=== PATIENT | female | born 1990 ===

== ENCOUNTER 2023-11-29 09:10 | Inpatient (IN) | payer OTHER ==
[~2023-11-29] VITALS: Ht 167.6 cm; Wt 108.9 kg
[2023-11-29] MEDS ORDERED: ACETAMINOPHEN 500 MG TAB PO ONE (10:15)
[2023-11-29] MEDS ORDERED: NIFEdipine 10 MG CAP PO ONE (10:15)
[2023-11-29] MEDS ORDERED: hydrOXYzine 25 MG TAB or CAP PO ONE (10:15)
[2023-11-29] MEDS ORDERED: LIDOCAINE 2%HCL (LOCAL ANESTH.) INJ 20ML MDV IJ PRN (10:30)
[2023-11-29] MEDS ORDERED: BUTORPHANOL TARTRATE 2 MG/1 ML VIAL IV PRN ×2 (10:30)
[2023-11-29 12:20] LABS: Albumin 3.6 g/dL (3.2-4.8); Alkaline Phosphatase 119 U/L (46-116); Anion Gap 8 (5-15); Aspartate Aminotransferase 17 U/L (13-40); Bilirubin, Total 0.7 mg/dL (0.2-1.0); Calcium 8.4 mg/dL (8.5-10.1); Carbon Dioxide 20 mmol/L (20-30); Chloride 109 mmol/L (98-107); Glucose 75 mg/dL (74-106); Sodium 137 mmol/L (136-145); Total Protein 6.6 g/dL (5.7-8.2)
[2023-11-29 12:21] LABS: Basophils # (auto) 0 10 ^3/uL (0-0.2); Basophils % (auto) 0.1 % (0.0-2.0); Eosinophils # (auto) 0 10 ^3/uL (0-0.8); Monocytes # (auto) 0.5 10 ^3/uL (0-1.3); Nucleated Red Blood Cells % 0.1 %
[2023-11-29 12:24] LABS: Amphetamine Screen, Urine Neg (NEGATIVE); Barbiturate Scree,Urine Neg (NEGATIVE); Benzodiazephine Screen, Urine Neg (NEGATIVE); Cannabinoid Screen, Urine Neg (NEGATIVE); Cocaine Screen, Urine Neg (NEGATIVE); Opiate Scree,Urine Neg (NEGATIVE); Phencyclidine Screen, Urine Neg (NEGATIVE)
[2023-11-29 12:27] LABS: Eosinophils % (auto) 0.2 % (0.0-7.0); Hematocrit 29.3 % (36.0-46.0); Hemoglobin 9.4 g/dL (12.2-16.2); Lymphocytes # (auto) 1.4 10 ^3/uL (0.4-5.4); Mean Corpuscular Hemoglobin 26.9 pg (28.0-32.0); Monocytes % (auto) 5.4 % (0.0-12.0); Neutrophils # (auto) 8.1 10 ^3/uL (1.6-8.6); Neutrophils % (auto) 80.3 % (37.0-80.0); Red Blood Cells 3.49 10^6/uL (4.0-5.20); Red Cell Distribution Width 17.8 % (11.8-14.3); White Blood Cell 10.1 10^3/uL (4.4-10.8)
[2023-11-29 12:30] LABS: Urine Bacteria FEW /hpf (None Seen); Urine Blood Negative /uL (Negative); Urine Clarity Clear (Clear); Urine Color Light-Yellow (Yellow); Urine Protein, UAD Negative (Negative); Urine Specific Gravity 1.006 (1.001-1.035); Urine Urobilinogen Normal (Negative); Urine WBC <1 /hpf (0 - 5); Urine pH 6.5 (5.0-9.0)
[2023-11-29 12:36] LABS: Alanine Aminotransferase < 9 U/L (7-40); BUN/Creatinine Ratio 9.4 (10.0-20.0); Blood Urea Nitrogen < 5 mg/dL (9-23)
[2023-11-29] MEDS ORDERED: miSOPROStol 100 mcg TAB SL PRN (12:45)
[2023-11-29] MEDS ORDERED: CARBOPROST TROMETHAMINE 250 MCG/1ML VIAL IM PRN (12:45)
[2023-11-29] MEDS ORDERED: miSOPROStol 100 mcg TAB PR PRN (12:45)
[2023-11-29 12:59] LABS: INR 0.94 (0.9-1.15); Partial Thromboplastin Time 24.5 SEC (24.5-34.5); Prothrombin Time 9.9 sec (9.3-11.8)
[2023-11-29] MEDS ORDERED: ePHEDrine SULFATE 50 MG/ML AMP IV ONE (14:15)
[2023-11-29] MEDS: LACTATED RINGER'S 1,000 ML IV ONE (14:15)
[2023-11-29] MEDS: LACTATED RINGER'S 1,000 ML IV SCH (14:29)
[2023-11-29] MEDS: PENICILLIN G POT 5MIL/D5 50ML 50 ML IV ONE (14:29)
[2023-11-29] MEDS: PHISODERM TOP SOLN 240ML BTL TOP PRN (14:30)
[2023-11-29] MEDS: DERMOPLAST 60ML BOTTLE TOP PRN (14:30)
[2023-11-29] MEDS: WITCH HAZEL-GLYCERIN PAD TOP PRN (14:30)
[2023-11-29] MEDS: ROPIVACAINE HCL 200 ML ONE (15:00)
[2023-11-29 16:37] LABS: Creatinine, Urine 31.51 mg/dL (30.0-125.0); Urine Protein/Creatinine Ratio 0.51
[2023-11-29] MEDS: ONDANSETRON HCL 4 MG/2 ML VIAL IV ONE (16:56)
[2023-11-29] MEDS: PENICILLIN G POTASSIUM 2,500,000 UNITS in D5W 5% 50 ML IV SCH (18:21)
[2023-11-29] MEDS ORDERED: TERBUTALINE SULFATE 1 MG/ML 1ML VIAL SC ONE (19:15)
[2023-11-29] MEDS: LACT. RINGERS/OXYTOCIN 20UNITS 1,000 ML IV SCH (19:17)
[2023-11-29] MEDS: CARBOPROST TROMETHAMINE 250 MCG/1ML VIAL IM ONE (20:46)
[2023-11-29] MEDS: DIPHENOXYLATE W/ATROPINE 2.5 MG TAB ONE (20:47)
[2023-11-29] MEDS: LACT. RINGERS/OXYTOCIN 20UNITS 500 ML IV ONE ×2 (20:51→21:51)
[2023-11-29] MEDS: METHYLERGONOVINE MALEATE 0.2 MG/ML AMP IM PRN (20:51)
[2023-11-29] MEDS: TRANEXAMIC ACID 1,000 MG in SODIUM CHL 0.9% 100 ML IV ONE (20:52)
[2023-11-29] MEDS ORDERED: DIPHENOXYLATE W/ATROPINE 2.5 MG TAB PO SCH (22:00)
[2023-11-29] MEDS ORDERED: TRANEXAMIC ACID 1,000 mg/10ml INJ VIAL IV ONE (22:25)
[2023-11-29] MEDS ORDERED: ONDANSETRON HCL 4 MG/2 ML VIAL IV PRN (22:45)
[2023-11-29 23:02] VITALS: BP 136/71; PULSE 83; RESP 16; TEMP 98.4; O2SAT 99
[2023-11-30 03:00] VITALS: BP 122/69; PULSE 83; RESP 16; TEMP 97.7; O2SAT 97
[2023-11-30 05:59] LABS: Basophils # (auto) 0 10 ^3/uL (0-0.2); Basophils % (auto) 0.2 % (0.0-2.0); Eosinophils # (auto) 0 10 ^3/uL (0-0.8); Eosinophils % (auto) 0.1 % (0.0-7.0); Hematocrit 26.8 % (36.0-46.0); Hemoglobin 8.4 g/dL (12.2-16.2); Lymphocytes # (auto) 1.9 10 ^3/uL (0.4-5.4); Mean Corpuscular Hemoglobin 26.6 pg (28.0-32.0); Mean Corpuscular Hgb Conc. 31.5 g/dL (32.0-36.0); Mean Corpuscular Volume 84.4 fL (80.0-100.0); Red Blood Cells 3.17 10^6/uL (4.0-5.20)
[2023-11-30 06:02] LABS: Lymphocytes % (auto) 16.5 % (10.0-50.0); Monocytes % (auto) 8.2 % (0.0-12.0); Neutrophils # (auto) 8.7 10 ^3/uL (1.6-8.6); Nucleated Red Blood Cells % 0.2 %; Red Cell Distribution Width 17.8 % (11.8-14.3); White Blood Cell 11.7 10^3/uL (4.4-10.8)
[2023-11-30 07:06] LABS: RPR Non Reactive (Non Reactive)
[2023-11-30 07:15] VITALS: BP 115/57; PULSE 74; RESP 16; TEMP 98.3; O2SAT 95
[2023-11-30] MEDS: IBUPROFEN 600 MG TAB PO PRN (07:18)
[2023-11-30 08:06] LABS: Rubella Antibodies, IgG 1.22 index (Immune >0.99)
[2023-11-30 10:45] VITALS: BP 117/58; PULSE 75; RESP 15; TEMP 98.1; O2SAT 100
[2023-11-30] MEDS: ACETAMINOPHEN 325 MG TAB PO PRN (11:34)
[2023-11-30 15:00] VITALS: BP 121/64; PULSE 85; RESP 14; TEMP 97.8; O2SAT 97
[2023-11-30 19:00] VITALS: BP 115/68; PULSE 86; RESP 18; TEMP 98.4; O2SAT 99
[2023-11-30] MEDS ORDERED: PREN-96 PO (19:55)
[2023-11-30] MEDS ORDERED: DOCU-265 PO (19:55)
[2023-11-30] MEDS ORDERED: IBU600T PO (19:55)
[2023-11-30] MEDS ORDERED: FER325T PO (19:55)
[2023-11-30] MEDS: TETANUS-DIPTH-ACEL PERTUSSIS 0.5ML SYR Tdap IM ONE (20:07)
[2023-11-30] MEDS ORDERED: DOCUSATE SOD 100 MG CAP PO SCH (22:00)
[2023-11-30 22:38] VITALS: BP 115/68; PULSE 88; RESP 16; TEMP 98.6; O2SAT 100
[2023-12-01 18:06] LABS: Treponema pallidum Ab (FTA-Ab) Non Reactive (Non Reactive)
== END 2023-11-30 22:38 | disposition home or self-care (01) | DRG 807 ==
LOC: LDRP 09:10 → OBSVTOIN 10:16
PROVIDERS: ADMIT Obstetrics & Gynecology; ATTEND Obstetrics & Gynecology
PROC: 10E0XZZ Delivery of Products of Conception, External Approach (ICD-10-PCS; principal; 2023-11-29)
PROC: 10907ZC Drainage of Amniotic Fluid, Therapeutic from Products of Conception, Via Natural or Artificial Opening (ICD-10-PCS; 2023-11-29)
PROC: 3E0R3BZ Introduction of Anesthetic Agent into Spinal Canal, Percutaneous Approach (ICD-10-PCS; 2023-11-29)
PROC: 00HU33Z Insertion of Infusion Device into Spinal Canal, Percutaneous Approach (ICD-10-PCS; 2023-11-29)
DX: O99.02 Anemia complicating childbirth (principal); Z37.0 Single live birth; Z3A.39 39 weeks gestation of pregnancy; O71.82 Other specified trauma to perineum and vulva; D50.9 Iron deficiency anemia, unspecified
CPT/HCPCS: 36415; 59025; 59409; 62282; 76805; 80053; 80307; 81001; 81002; 82570; 84156; 84550; 85025; 85610; 85730; 86592; 86703; 86762; 86803; 86850; 86900; 86901; 87340; 90715; 93971; 94760; 96360; 96361; 96372; 96374; 96375; G0378; J2405; J2540; J2590; J7060